=== PATIENT | female | born 1935 | race Hispanic/Latino ===

== ENCOUNTER 2016-12-13 07:04 | Outpatient (CLI) | payer OTHER ==
--- NOTE | 2016-12-14 08:44 | Mammography Report ---
BILATERAL MAMMOGRAM with CAD: HISTORY:Cancer screening. Comparison study is dated November 28, 2015. FINDINGS: The breasts are almost entirely fat (<25% glandular). No mass, distortion, suspicious calcification, or skin change is seen. IMPRESSION: Negative mammogram. There is no mammographic evidence of malignancy. RECOMMENDATION: Follow-up per ACS guidelines. BI-RADS CATEGORY: 1 = Negative ACR BI-RADS MAMMOGRAPHIC CODES: 0 = Needs additional imaging evaluation; 1 = Negative; 2 = Benign; 3 = Probably benign; 4 = Suspicious; 5 = Malignant; 6 = Known biopsy-proven malignancy COMMENT: 1. Dense breast tissue, i.e., adenosis, fibrocystic changes, etc., may obscure an underlying neoplasm. 2. Approximately 10% of cancers are not detected with mammography. 3. A negative mammography report should not delay biopsy if a clinically suspicious mass is present. COMMENT: Patient follow-up letters are generated in [employer].
== END 2016-12-13 07:05 | disposition home or self-care (01) ==
LOC: MAMMO 07:04
PROVIDERS: ATTEND Internal Medicine
DX: Z12.31 Encounter for screening mammogram for malignant neoplasm of breast (principal)
CPT/HCPCS: 77067; G0202

== ENCOUNTER 2019-05-30 07:57 | Outpatient (CLI) | payer MEDICARE ==
--- NOTE | 2019-05-30 10:50 | Mammography Report ---
BILATERAL DIGITAL SCREENING MAMMOGRAM WITH CAD INDICATION: Routine screening mammography. TECHNIQUE: Digital bilateral 2D mammography was obtained in the craniocaudal and mediolateral obliq ue projections. This examination was interpreted with the benefit of Computer-Aided Detection analysi s. COMPARISON: 12/13/2016 FINDINGS: Breast Density: The breasts are almost entirely fatty. No mass, architectural distortion or suspicious calcifications. A left central posterior biopsy clip. Bilateral benign arterial calcifications. IMPRESSION:No mammographic evidence of malignancy. BI-RADS Category 2: Benign. No mammographic evidence of malignancy. Recommend routine screening ma mmography in one year. A "normal" or negative report should not discourage follow up or biopsy of a clinically significant f inding. A written summary of these findings will be mailed to the patient. The patient will be entered into a mammography reporting system which will generate a reminder letter for the patient's next appointmen t at the appropriate interval. The [employer] recommends yearly mammograms starting at age 40 and continuing as l clarissa as a woman is in good health. Breast MRI is recommended for women with an approximate 20-25% or greater lifetime risk of breast cancer, including women with a strong family history of breast or ova reinier cancer or who have been treated for Hodgkin's disease. Signer Name: George Manzanares MD Signed: 05/30/2019 10:46 AM Workstation Name: [id number]
== END 2019-05-30 07:58 | disposition home or self-care (01) ==
LOC: MAMMO 07:57
PROVIDERS: ATTEND Internal Medicine
DX: Z12.31 Encounter for screening mammogram for malignant neoplasm of breast (principal); I10 Essential (primary) hypertension; Z90.710 Acquired absence of both cervix and uterus
CPT/HCPCS: 77067

== ENCOUNTER 2019-12-11 07:54 | Outpatient (CLI) | payer MEDICARE ==
--- NOTE | 2019-12-11 10:49 | Nuclear Medicine Report ---
NUCLEAR MEDICINE GASTRIC EMPTYING SCAN HISTORY: Weight loss, early satiety TECHNIQUE: 1 mci of technetium 99m sulfur colloid in oatmeal was ingested. Anterior abdominal imaging was obtain ed for 90 minutes. COMPARISON: No relevant comparison. FINDINGS: Half-life for gastric emptying measures 39 minutes. There is no scintigraphic evidence for reflux dis ease. IMPRESSION: Normal gastric emptying. Signer Name: Ke Ivey Jr, MD Signed: 12/11/2019 10:45 AM Workstation Name: [id number]
== END 2019-12-11 07:55 | disposition home or self-care (01) ==
LOC: NM 07:54
PROVIDERS: ATTEND Internal Medicine Gastroenterology
DX: R63.4 Abnormal weight loss (principal); R68.81 Early satiety
CPT/HCPCS: 78264; A9541